=== PATIENT | male | born 1950 | race Caucasian/White ===

== ENCOUNTER 2020-09-10 17:47 | Emergency (ER) | payer OTHER ==
[2020-09-10] MEDS ORDERED: ACETAMINOPHEN 1000 MG/100 ML VIAL (NON FORMULARY) IVPB ONE (18:03)
[2020-09-10] MEDS ORDERED: SODIUM CHLORIDE 0.9% 500 ML INFUS.BAG IV ONE (18:09)
[2020-09-10 18:19] VITALS: BP 153/77; PULSE 72; TEMP 98; BMI 24.7
[2020-09-10 18:35] LABS: BASO % 4.9 % (0-2.0); EOS % 2.7 % (0-4.5); HEMOGLOBIN 13.7 GM/dl (11.7-16.9); LYMPH % 13.3 % (8-40); MCH 30.1 pg (25.7-33.7); MCHC 32.5 g/dl (32.0-35.9); MEAN CELL VOLUME 92.6 fl (80-96); MEAN PLT VOLUME 9.3 fl (7.5-11.1); NEUT % 69.1 % (42.8-82.8); PLATELET COUNT 270 K/MM3 (134-434); RBC 4.54 M/mm3 (4.00-5.60); RDW 14.3 % (11.9-15.9); WHITE BLOOD COUNT 11.4 K/mm3 (4.0-10.8)
[2020-09-10 18:58] LABS: ACTIVATED PTT 25.9 SECONDS (25.2-36.5)
[2020-09-10 19:00] LABS: BILIRUBIN,TOTAL 0.7 mg/dl (0.2-1); CALCIUM 8.9 mg/dl (8.5-10); CREATININE 1.8 mg/dl (0.55-1.3); POTASSIUM 4.2 mmol/L (3.5-5.1); TOT PROT 7.5 g/dl (6.4-8.2)
[2020-09-10 19:03] LABS: INR 1.11 (0.82-1.09); PROTHROMBIN TIME (PATIENT) 12.3 SEC (10.2-13.0)
[2020-09-10 20:36] LABS: EPITHELIAL CELLS RARE /hpf
== END 2020-09-10 21:41 | disposition home or self-care (01) ==
LOC: FER 17:47
PROC: 3E0333Z Introduction of Anti-inflammatory into Peripheral Vein, Percutaneous Approach (ICD-10-PCS; principal; 2020-09-10)
DX: N20.0 Calculus of kidney (principal); N18.9 Chronic kidney disease, unspecified
CPT/HCPCS: 36415; 74176-TC; 80053; 81003; 81015; 83690; 85025; 85610; 85730; 87086; 99284-25; J0131